=== PATIENT | female | born 2005 | race Caucasian/White ===

== ENCOUNTER 2023-09-22 08:42 | Emergency (ER) | payer BC ==
[~2023-09-22] VITALS: Ht 165.1 cm; Wt 66.0 kg
[2023-09-22 08:50] VITALS: O2SAT 100
[2023-09-22] MEDS ORDERED: OFLO5DRO4 LEFT EAR (09:42)
[2023-09-22 09:55] VITALS: BP 124/72; PULSE 78; RESP 18; TEMP 97.9
== END 2023-09-22 09:57 | disposition home or self-care (01) ==
LOC: ER 08:42
DX: H60.502 Unspecified acute noninfective otitis externa, left ear (principal)
CPT/HCPCS: 99283